=== PATIENT | male | born 1945 | race Caucasian/White ===

== ENCOUNTER 2019-04-14 23:49 | Emergency (ER) | payer OTHER ==
[~2019-04-14] VITALS: Ht 180.3 cm; Wt 93.0 kg
[2019-04-15 00:08] VITALS: BP_SYST 117
--- NOTE | 2019-04-15 00:28 | NUR ---
Pt brought in by . Pt states that he had a stent placed thursday and was started on plavix with the first dose being 0800hrs , . Pt states that shortly after taking plavix, he broke out in rash, localized to trucnk and lower extremeties. Pt denies chest pain, shortness of breath, nausea, vomiting or diarrhea. Pt denies any other medical complaint at this time. Pt denies pain at this time, claims his rash is causing "discomfort". Pt awake, alert, oriented x4. Pt vss, resting in ed Bed comfortably.
--- NOTE | 2019-04-15 00:28 | NUR ---
Pt placed to ER bed 02, to gown. Report given to MIS Jenkins.
--- NOTE | 2019-04-15 00:37 | NUR ---
ER at bedside examining patient.
--- NOTE | 2019-04-15 01:25 | NUR ---
Pt Awake, alert, oriented and resting in ED bed with bedside. No acute distress noted at this time.
[2019-04-15 01:40] LABS: MEAN CORPUSCULAR HGB CONC 35 % (32-36); WHITE BLOOD COUNT (AUTO) 10.9 K/uL (4.8-10.8)
[2019-04-15 01:44] LABS: BASOPHILS % (AUTO) 0.4 % (0.0-2.0); EOSINOPHILS # (AUTO) 0.3 K/uL (0.0-0.4); EOSINOPHILS % (AUTO) 2.5 % (0.0-4.0); HEMATOCRIT 43.9 % (36-54); HEMOGLOBIN 15.2 g/dL (14.0-18.0); LYMPHOCYTES # (AUTO) 1.4 K/uL (1.0-5.5); LYMPHOCYTES % (AUTO) 12.5 % (20.5-51.5); MEAN CORPUSCULAR HEMOGLOBIN 31 pg (27-31); MEAN CORPUSCULAR VOLUME 90 fL (79.0-98.0); MONOCYTES # (AUTO) 0.7 K/uL (0.0-1.0); MONOCYTES % (AUTO) 6.2 % (1.7-9.3); NEUTROPHILS # (AUTO) 8.5 K/uL (1.8-7.7); NEUTROPHILS % (AUTO) 78.4 % (40.0-70.0); PLATELET COUNT (AUTO) 221 K/uL (130-430); RED CELL DISTRIBUTION WIDTH 13.5 % (9.0-15.0)
[2019-04-15 01:49] LABS: ANION GAP 4 (5-15); CALCIUM 8.3 mg/dL (8.4-11.0); CHLORIDE 101 mmol/L (98-107); CREATININE 1.23 mg/dL (0.55-1.30); GLUCOSE 161 mg/dL (70-99); POTASSIUM 3.6 mmol/L (3.5-5.1); SODIUM SERUM 132 mmol/L (136-145); UREA NITROGEN, BLOOD 24 mg/dL (8-21)
[2019-04-15 01:55] LABS: ALANINE AMINOTRANSFERASE 17 U/L (12-78); ALBUMIN 3.3 g/dL (3.4-4.8); ASPARTATE AMINOTRANSFERASE 9 U/L (10-37); TOTAL BILIRUBIN 0.5 mg/dL (0.0-1.0)
[2019-04-15 03:00] VITALS: BP_SYST 112
--- NOTE | 2019-04-15 03:00 | NUR ---
Patient given written and verbal discharge instructions and verbalizes understanding. ER MD discussed with patient the results and treatment provided. Patient in stable condition. ID arm band removed. Rx of given. Patient educated on pain management and to follow up with PMD. Pain Scale 0/10. Opportunity for questions provided and answered.
== END 2019-04-15 03:00 | disposition home or self-care (01) ==
LOC: SED 23:49
DX: R21 Rash and other nonspecific skin eruption (principal)
CPT/HCPCS: 36415; 80053; 85025; 99283

== ENCOUNTER 2021-11-27 18:37 | Emergency (ER) | payer OTHER ==
[~2021-11-27] VITALS: Ht 177.8 cm; Wt 93.0 kg
[2021-11-27 18:48] VITALS: BP_SYST 152
[2021-11-27 19:32] LABS: BASOPHILS % (AUTO) 0.3 % (0.0-2.0); EOSINOPHILS % (AUTO) 0.6 % (0.0-4.0); HEMATOCRIT 43.5 % (36-54); HEMOGLOBIN 14.8 g/dL (14.0-18.0); LYMPHOCYTES # (AUTO) 1.1 K/uL (1.0-5.5); LYMPHOCYTES % (AUTO) 13.4 % (20.5-51.5); MEAN CORPUSCULAR HEMOGLOBIN 30 pg (27-31); MEAN CORPUSCULAR HGB CONC 34 % (32-36); MEAN CORPUSCULAR VOLUME 89 fL (79.0-98.0); MONOCYTES # (AUTO) 0.5 K/uL (0.0-1.0); MONOCYTES % (AUTO) 5.6 % (1.7-9.3); NEUTROPHILS # (AUTO) 6.5 K/uL (1.8-7.7); NEUTROPHILS % (AUTO) 80.1 % (40.0-70.0); PLATELET COUNT (AUTO) 169 K/uL (130-430); RED BLOOD CELL COUNT(AUTO) 4.89 MIL/uL (4.2-6.2); RED CELL DISTRIBUTION WIDTH 13.9 % (9.0-15.0); WHITE BLOOD COUNT (AUTO) 8.1 K/uL (4.8-10.8)
--- NOTE | 2021-11-27 19:37 | NUR ---
Pt to bed 3 w/ c/o vertigo and nausea/vomiting since last night. Pt denies chest pain. Normal skin color for ethnicity. Pt ambulates with strong steady gait. at bedside.
--- NOTE | 2021-11-27 19:38 | NUR ---
Pt placed on night monitor. pulse oximetry on. Bed in low position. Side rails up.
[2021-11-27 19:41] LABS: ANION GAP 9 (5-15); CALCIUM 8.4 mg/dL (8.4-11.0); CHLORIDE 105 mmol/L (98-107); GLUCOSE 127 mg/dL (70-99); POTASSIUM 4.3 mmol/L (3.5-5.1); SODIUM SERUM 139 mmol/L (136-145); UREA NITROGEN, BLOOD 20 mg/dL (8-21)
[2021-11-27 19:53] LABS: ALANINE AMINOTRANSFERASE 13 U/L (12-78); ALBUMIN 3.6 g/dL (3.4-4.8); ASPARTATE AMINOTRANSFERASE 10 U/L (10-37); TOTAL BILIRUBIN 0.8 mg/dL (0.0-1.0)
[2021-11-27] MEDS ORDERED: GLIP10TA11 PO (20:09)
[2021-11-27] MEDS ORDERED: INSU100V9 SQ (20:09)
[2021-11-27] MEDS ORDERED: ROSU20TA2 PO (20:09)
[2021-11-27] MEDS ORDERED: VITD2000 PO (20:09)
[2021-11-27] MEDS ORDERED: IRBE300T40 PO (20:09)
[2021-11-27] MEDS ORDERED: EMPA1TAB PO (20:09)
[2021-11-27] MEDS ORDERED: NOR10 PO (20:09)
[2021-11-27] MEDS ORDERED: ASPI-989 PO (20:09)
[2021-11-27] MEDS ORDERED: INSU100V SQ (20:09)
[2021-11-27] MEDS ORDERED: CARV3.1246 PO (20:09)
--- NOTE | 2021-11-27 20:19 | NUR ---
security monitor 5-lead adjusted on patient at this time due to poor rhythm reading on monitor.
[2021-11-27] MEDS ORDERED: MECL-225 PO (20:56)
[2021-11-27] MEDS ORDERED: METO-290 PO (20:56)
--- NOTE | 2021-11-27 21:25 | NUR ---
Patient given written and verbal discharge instructions and verbalizes understanding. ER MD discussed with patient the results and treatment provided. Patient in stable condition. ID arm band removed. Rx of MECLIZINE AND REGLAN given. Patient educated on pain management and to follow up with PMD. Pain Scale . Opportunity for questions provided and answered. Medication side effect fact sheet provided. Pt ambulated independently with strong, steady gait at this time.
== END 2021-11-27 21:32 | disposition home or self-care (01) ==
LOC: SED 18:37
DX: R42 Dizziness and giddiness (principal); R11.2 Nausea with vomiting, unspecified; E11.9 Type 2 diabetes mellitus without complications; Z86.79 Personal history of other diseases of the circulatory system; Z79.4 Long term (current) use of insulin; Z79.82 Long term (current) use of aspirin
CPT/HCPCS: 36415; 80053; 84484; 85025; 93005; 99284

== ENCOUNTER 2022-10-10 17:07 | Inpatient (IN) | payer OTHER ==
[~2022-10-10] VITALS: Ht 180.3 cm; Wt 88.9 kg
[~2022-10-10 17:07] MED LIST: ASPI-989 PO; CARV3.1246 PO; EMPA1TAB PO; GLIP10TA11 PO; INSU100V SQ; INSU100V9 SQ; IRBE300T40 PO; MECL-225 PO; METO-290 PO; NOR10 PO; ROSU20TA2 PO; VITD2000 PO
[2022-10-10 17:10] VITALS: BP_SYST 123
--- NOTE | 2022-10-10 17:17 | NUR ---
RECEIVED PT FROM MIS KHALIL. PT BIB WITH C/O C/P. EKG OBTAINED AND SHOWS AFIB RVR. PT IS AAOX4. RESP E/U. ON R/A. RE\ Addendum: 10/10/22 at 1747 by [email or web address] ABDOMEN SOFT, NONTENDER, NONDISTENDED. DENIES N/V/D/C. DISTAL PULSES STRONG, NO PERIPHERAL EDEMA NOTED. SKIN WARM, CDI. SIDERAILS UP X2.
--- NOTE | 2022-10-10 17:18 | NUR ---
DR. ELIAS AT BEDSIDE TO ASSESS PT.
--- NOTE | 2022-10-10 17:29 | NUR ---
Placed in room 03 . Placed on cardiac rehabilitation program director, blood pressure machine and pulse oximeter. To gown for exam. Side rails up.
--- NOTE | 2022-10-10 17:35 | NUR ---
PT BIB FROM HOME, C/O SUBSTERNAL NON-RADIATING CP STARTING AROUND 12PM TODAY, PT STATES HE HAS ALSO BEEN FEELING SOB. PER PT'S HR HAS BEEN IN THE 150S FOR 4 DAYS. PT HAS A HX OF CARDIAC STENT PLACEMENT AND TAKES ASA DAILY. PT IS AMBULATORY, AAOX4.
--- NOTE | 2022-10-10 17:35 | NUR ---
# 20 gauge angiocath placed to RAC. Use of asceptic technique. Opsite placed over site. Blood return noted. Blood for lab drawn from site. Flushed with 10 cc of normal saline. No evidence of infiltration noted. Patient tolerated well.
[2022-10-10] MEDS ORDERED: niCARdipine 2.5 MG/ML, 10 ML VIAL (CARDENE) IV ONE (17:37)
--- NOTE | 2022-10-10 17:40 | NUR ---
CARDIZEM 10MG IVP GIVEN AT THIS TIME. FOR AFIB HR IN THE 150-160S.
--- NOTE | 2022-10-10 17:42 | NUR ---
HR NOW IN THE 110S. PT DENIES C/P AT THIS TIME.
[2022-10-10] MEDS ORDERED: DILTIAZEM HCL 60 MG TABLET PO ONE (17:45)
[2022-10-10] MEDS ORDERED: dilTIAZem HCL IVP 5 MG/ML VIAL IVP ONE ×2 (17:45→18:00)
[2022-10-10 17:54] LABS: BASOPHILS # (AUTO) 0.1 K/uL (0.0-0.2); BASOPHILS % (AUTO) 0.9 % (0.0-2.0); EOSINOPHILS # (AUTO) 0.1 K/uL (0.0-0.4); EOSINOPHILS % (AUTO) 1.3 % (0.0-4.0); HEMATOCRIT 40.7 % (36-54); HEMOGLOBIN 13.6 g/dL (14.0-18.0); LYMPHOCYTES # (AUTO) 1.7 K/uL (1.0-5.5); LYMPHOCYTES % (AUTO) 17.5 % (20.5-51.5); MEAN CORPUSCULAR HEMOGLOBIN 30 pg (27-31); MEAN CORPUSCULAR HGB CONC 34 % (32-36); MEAN CORPUSCULAR VOLUME 90 fL (79.0-98.0); MONOCYTES # (AUTO) 0.8 K/uL (0.0-1.0); NEUTROPHILS # (AUTO) 7.2 K/uL (1.8-7.7); NEUTROPHILS % (AUTO) 72.3 % (40.0-70.0); PLATELET COUNT (AUTO) 254 K/uL (130-430); RED BLOOD CELL COUNT(AUTO) 4.51 MIL/uL (4.2-6.2); RED CELL DISTRIBUTION WIDTH 13.7 % (9.0-15.0)
--- NOTE | 2022-10-10 18:02 | NUR ---
CARDIZEM 60MG TAB PO GIVEN. CARDIZEM 10MG IVP SECOND DOSE HELD. PT HR MAINTAINING THE THE 110S.
[2022-10-10 18:08] LABS: ALANINE AMINOTRANSFERASE 22 U/L (12-78); ALBUMIN 3.3 g/dL (3.4-4.8); ANION GAP 9 (5-15); ASPARTATE AMINOTRANSFERASE 11 U/L (10-37); CALCIUM 8.3 mg/dL (8.4-11.0); CHLORIDE 105 mmol/L (98-107); CREATININE 1.13 mg/dL (0.55-1.30); GLUCOSE 153 mg/dL (70-99); PROTHROMBIN TIME 10.6 SECS (9.5-12.5); TOTAL BILIRUBIN 0.4 mg/dL (0.0-1.0); UREA NITROGEN, BLOOD 22 mg/dL (8-21)
--- NOTE | 2022-10-10 19:05 | NUR ---
DR. MEDEL AT BEDSIDE TO ASSESS PT.
[2022-10-10] MEDS ORDERED: ASPIRIN 81 MG TAB.CHEW PO ONE (19:15)
--- NOTE | 2022-10-10 19:19 | NUR ---
Admit bed requested Patient will be admitted to care of Dr. FLORIAN. Admitted to TELEMETRY unit. Diagnosis A-FLUTTER, CHEST PAIN Inpatient (Yes or No) YES Observation (Yes or No) NO Orientation concerns or request close to nursing station (Yes or No) NO Covid Status N/A On vent or bipap NO Isolation requirements NO Needs a sitter NO From Home (Yes or if No enter name of facility) YES Requires Dialysis (Yes or No) NO Med Rec Completed (Yes of No) PENDING
--- NOTE | 2022-10-10 19:20 | NUR ---
Note johnny in [facility] - 10/10/22 at [email or web address] MIREYA AT BEDSIDE ULTRASOUND IV ATTEMPT, SUCCESSFUL SAFETY RAILS UP CONNECTED TO VS MONITOR.
--- NOTE | 2022-10-10 19:26 | NUR ---
SECOND EKG OBTAINED. PT ENDORSED TO MIS SMITH. ALL QUESTIONS AND CONCERNS ADDRESSED.
--- NOTE | 2022-10-10 20:36 | NUR ---
Aminta turner in [facility] - 10/10/22 at 2038 by [email or web address] PT HAS 22 TO LEFT FOREARM
[2022-10-10] MEDS ORDERED: EMPA1TAB7 PO (21:09)
[2022-10-10] MEDS ORDERED: INSU100V9 SQ (21:09)
[2022-10-10] MEDS ORDERED: CARV6.2554 PO (21:09)
--- NOTE | 2022-10-10 21:20 | NUR ---
RECEIVED PT FROM ER VIA ARNAV VASQUEZ, EVEN AND UNLABIRED Addendum: 10/11/22 at 0114 by Richie Gonsalves, MIS ABEBE EVEN AND UNLABORED BREATHING, IN COMPANY OF SPOUSE, ROOM AIR, PT DENIED ANY SOB, CP OR ANY PAIN ATT, VSS, SKIN INTACT UPON ASSESSMENT, ABD SOFT WITH ACTIVE SOUND, PT AMBULATORY W/O ASSIST, STEADY GAIT, IV ACCESS TO LAC INTACT, CDI, BLE NOTED WITH +2 EDEMA, PT STATED HE IA ALLERGIC TO SHRIMP AND CONTRAST DYE, BLOOD SUGAR CHECKED AND WNL 120MG/DL, PT ADMITTED TO TLT UNIT UNDER THE CARTE OF DR. DE LA ROSA. PT ORIENTED TO ROOM, BATHROOM, USE OF CALL LIGHT, BED POSITIONING, SAFETY PREC, INSTRUCTED TO CALL THE NURSE FOR PRN MEDS IF NEED BE, PT VERBALIZED UNDERSTANDING, WILL CONTINUE WITH POC.
--- NOTE | 2022-10-10 21:40 | NUR ---
CALLED AND SPOKE WITH DR FLORIAN REGARDING SLIDING SCALE AND ACCUCHECK TO MONITOR PT BLOOD SUGAR AND TO BE AWARE THAT MED RECON HAS BEEN UPDATED, DR FLORIAN ORDERED REGULAR INSULIN SLIDING SCALE, ACHS ACCUCHECK AND STATED NO HYDRATION IV FLUID FOR PT. ORDER NOTED AND CARRIED OUT
[2022-10-10] MEDS ORDERED: DEXTROSE 50% JECT 50 ML DISP.SYRIN IVP ONE (22:15)
[2022-10-10] MEDS ORDERED: INSULIN REGULAR, HUMAN 100 UNITS/ML, 3 ML VIAL (humuLIN R) SUBCUT PRN (22:15)
--- NOTE | 2022-10-10 22:21 | NUR ---
Patient will be admitted to care of DR FLORIAN. Admitted to TELE unit. Will go to room 118B. Belongings MED/REC list completed. Complete and up to date summary report printed. SBAR report to JESSIE ABEBE be given at bedside with opportunity for questions.
[2022-10-10 22:32] VITALS: BP_SYST 118
[2022-10-10] MEDS ORDERED: ACETAMINOPHEN 325 MG TABLET PO PRN (22:45)
[2022-10-10] MEDS ORDERED: HYDROcodone/ACETAMIN 10-325 MG TAB PO PRN (22:45)
[2022-10-10] MEDS ORDERED: HYDROcodone/ACETAMIN 5-325 MG TAB (NORCO/ VICODIN) PO PRN (22:45)
[2022-10-10] MEDS ORDERED: LORazepam 2 MG/ML VIAL IVP PRN (22:45)
[2022-10-10] MEDS ORDERED: ONDANSETRON HCL 4 MG/2 ML VIAL IVP PRN (22:45)
[2022-10-10] MEDS ORDERED: NALOXONE HCL 0.4 MG/ML AMP (NARCAN) IVP PRN ×2 (22:45)
[2022-10-11 02:00] VITALS: BP_SYST 113
--- NOTE | 2022-10-11 04:46 | NUR ---
CONSULTATION PAGED/CALLED Reason for Consultation: A-Flutter Person Who was Notified: Orville Ingram via text Consulting Physician: Orville Ingram Ordering Physician: Tom Ingram
[2022-10-11] MEDS ORDERED: NORMAL SALINE 5 ML DISP.SYRIN IVF SCH (06:00)
[2022-10-11] MEDS: METOCLOPRAMIDE HCL 10 MG TABLET PO SCH ×3 (06:31→12:16)
--- NOTE | 2022-10-11 06:39 | NUR ---
PT IN BED, AOX4, EVEN AND UNLABORED BREATHING, DENIED ANY SOB, CP OR ANY PAIN ATT, VSS, PT AMBULATORY W/O ASSIST, STEADY GAIT, IV ACCESS TO LAC PATENT, CDI, NO CHANGES DURING SHIFT, BLOOD SUGAR CHECKED AND WNL 120 & 134MG/DL, CALL LIGHT WITHIN REACH, SAFETY PREC. MAINTAINED, VOIDING W/O DIFFICULTY, AMBULATORY TO RESTROOM W/O ASSIST, LOW BED POSITIONED, WILL ENDORSE TO AM SHIFT
[2022-10-11] MEDS ORDERED: INSULIN Lispro 100 UNITS/ML, 3 ML VIAL (humaLOG) SQ SCH (07:00)
[2022-10-11 08:05] LABS: BASOPHILS % (AUTO) 0.6 % (0.0-2.0); EOSINOPHILS # (AUTO) 0.1 K/uL (0.0-0.4); EOSINOPHILS % (AUTO) 1.7 % (0.0-4.0); HEMATOCRIT 38.6 % (36-54); HEMOGLOBIN 12.9 g/dL (14.0-18.0); LYMPHOCYTES # (AUTO) 1.2 K/uL (1.0-5.5); LYMPHOCYTES % (AUTO) 18.1 % (20.5-51.5); MEAN CORPUSCULAR HEMOGLOBIN 30 pg (27-31); MEAN CORPUSCULAR HGB CONC 34 % (32-36); MEAN CORPUSCULAR VOLUME 91 fL (79.0-98.0); MONOCYTES # (AUTO) 0.5 K/uL (0.0-1.0); MONOCYTES % (AUTO) 7.4 % (1.7-9.3); NEUTROPHILS # (AUTO) 4.7 K/uL (1.8-7.7); NEUTROPHILS % (AUTO) 72.2 % (40.0-70.0); PLATELET COUNT (AUTO) 234 K/uL (130-430); RED BLOOD CELL COUNT(AUTO) 4.26 MIL/uL (4.2-6.2); RED CELL DISTRIBUTION WIDTH 13.6 % (9.0-15.0); WHITE BLOOD COUNT (AUTO) 6.5 K/uL (4.8-10.8)
--- NOTE | 2022-10-11 08:15 | NUR ---
INITIAL ROUNDS Received pt AAOx4, no s/s resp distress, no c/o pain or discomfort. Pt c/o being hungry-noted no breakfast tray-called dietary right away for pt's Cardiac breakfast. Plan of care for the day reviewed with pt-pt verbalized his understanding. Pain management, disease process, skin and safety discussed-teach back done. Call light within reach.
[2022-10-11 08:39] LABS: ANION GAP 11 (5-15); CALCIUM 8.1 mg/dL (8.4-11.0); CHLORIDE 106 mmol/L (98-107); CHOLESTEROL 75 mg/dL (<200); CREATININE 1.04 mg/dL (0.55-1.30); GLUCOSE 142 mg/dL (70-99); HDL CHOLESTEROL 43 mg/dL (>45); PHOSPHORUS 3.3 mg/dL (2.7-4.5); THYROID STIMULATING HORMONE 1.96 uIu/mL (0.34-4.82); TRIGLYCERIDES 57 mg/dL (30-150); UREA NITROGEN, BLOOD 18 mg/dL (8-21)
[2022-10-11 08:47] VITALS: BP_SYST 123
[2022-10-11 08:52] VITALS: BP_SYST 123
[2022-10-11] MEDS ORDERED: CHOLECALCIFEROL (VITAMIN D3) 2,000 UNIT TABLET PO SCH (09:00)
[2022-10-11] MEDS ORDERED: [UNRECOGNIZED DRUG - OTHER] PO SCH (09:00)
[2022-10-11] MEDS ORDERED: MECLIZINE HCL 25 MG TABLET (ANITVERT) PO SCH (09:00)
[2022-10-11] MEDS ORDERED: ASPIRIN 81 MG TABLET(ECOTRIN) PO SCH (09:00)
[2022-10-11] MEDS ORDERED: EMPAGLIFLOZIN PO SCH (09:00)
[2022-10-11] MEDS ORDERED: METFORMIN HCL PO SCH (09:00)
[2022-10-11] MEDS ORDERED: CARVEDILOL 6.25 MG TABLET (COREG) PO SCH (09:00)
[2022-10-11] MEDS ORDERED: amLODIPine BESYLATE 10 MG TABLET PO SCH (09:00)
[2022-10-11] MEDS ORDERED: APIX5TAB PO (15:15)
[2022-10-11] MEDS ORDERED: CARV12.548 PO (15:15)
[2022-10-11 15:47] VITALS: BP_SYST 106
--- NOTE | 2022-10-11 16:15 | NUR ---
PATIENT DISCHARGED HOME Patient given medication reconciliation form and D/C instructions. Exit Care on Chest Pain, Atrial Fib, Atrial Flutter and Eliquis explained and provided. Patient and patient's both verbalized their understanding. MD discussed with patient the results and treatment provided. Ambulatory with steady gait for discharge to home. Patient in stable condition, ID band removed. IV catheter removed, intact and dressing applied, no active bleeding. Rx of Eliquis given. Patient educated on pain management. All belongings sent with patient. Patient left floor via wheelchair to private vehicle in no distress.
[2022-10-11] MEDS ORDERED: ATORVASTATIN 20 MG TABLET PO SCH (21:00)
[2022-10-11] MEDS ORDERED: LOSARTAN POTASSIUM 50 MG TABLET (COZAAR) PO SCH (21:00)
[2022-10-11] MEDS ORDERED: INSULIN GLARGINE 100 UNITS/ML, 10 ML VIAL SQ SCH (21:00)
== END 2022-10-11 16:15 | disposition home health service (06) | DRG 309 ==
LOC: SED 17:07 → STU 19:23
PROVIDERS: ADMIT Preventive Medicine Preventive Medicine/Occupational Environmental Medicine; ATTEND Preventive Medicine Preventive Medicine/Occupational Environmental Medicine
DX: I48.92 Unspecified atrial flutter (principal); E44.1 Mild protein-calorie malnutrition; I48.20 Chronic atrial fibrillation, unspecified; I10 Essential (primary) hypertension; I25.10 Atherosclerotic heart disease of native coronary artery without angina pectoris; C61 Malignant neoplasm of prostate; E11.9 Type 2 diabetes mellitus without complications; J44.9 Chronic obstructive pulmonary disease, unspecified; E55.9 Vitamin D deficiency, unspecified; E78.5 Hyperlipidemia, unspecified; I25.2 Old myocardial infarction; Z79.4 Long term (current) use of insulin; Z79.899 Other long term (current) drug therapy; Z79.82 Long term (current) use of aspirin; Z88.8 Allergy status to other drugs, medicaments and biological substances; Z79.01 Long term (current) use of anticoagulants; Z68.27 Body mass index [BMI] 27.0-27.9, adult
CPT/HCPCS: 36415; 71045; 80048; 80053; 80061; 83735; 84100; 84443; 84484; 85025; 85610-TC; 85730-TC; 93005; 93306; 99291; G0378; J3490; J8597

== ENCOUNTER 2023-03-21 15:08 | Emergency (ER) | payer OTHER ==
[~2023-03-21] VITALS: Ht 180.3 cm; Wt 88.0 kg
[~2023-03-21 15:08] MED LIST changes: +APIX5TAB PO; +CARV12.548 PO; -CARV3.1246 PO; +EMPA1TAB7 PO; -NOR10 PO
[2023-03-21 15:10] VITALS: BP_SYST 125; PULSE 55; RESP 17; TEMP 97.6; O2SAT 97
[2023-03-21 21:00] VITALS: BP_SYST 122; PULSE 55; RESP 17; TEMP 97.6; O2SAT 97
[2023-03-21] MEDS ORDERED: DICL20GE TP (21:00)
== END 2023-03-21 21:00 | disposition home or self-care (01) ==
LOC: SED 15:08
DX: S46.212A Strain of muscle, fascia and tendon of other parts of biceps, left arm, initial encounter (principal); E11.9 Type 2 diabetes mellitus without complications; I10 Essential (primary) hypertension; Z91.013 Allergy to seafood; Z79.4 Long term (current) use of insulin; Z79.899 Other long term (current) drug therapy; X58.XXXA Exposure to other specified factors, initial encounter; Y93.89 Activity, other specified; Y92.89 Other specified places as the place of occurrence of the external cause; Y99.8 Other external cause status
CPT/HCPCS: 73030; 73060-TC; 93971; 99284

== ENCOUNTER 2024-01-10 09:07 | Emergency (ER) | payer OTHER ==
[~2024-01-10] VITALS: Ht 180.3 cm; Wt 86.2 kg
[~2024-01-10 09:07] MED LIST changes: +DICL20GE TP
[2024-01-10 09:22] VITALS: BP_SYST 116; PULSE 60; RESP 16; TEMP 96.9; O2SAT 96
[2024-01-10] MEDS ORDERED: ACET1TAB93 PO (11:01)
[2024-01-10 11:26] VITALS: BP_SYST 127; PULSE 60; RESP 16; TEMP 98; O2SAT 96
== END 2024-01-10 11:28 | disposition home or self-care (01) ==
LOC: SED 09:07
DX: M54.16 Radiculopathy, lumbar region (principal); E11.9 Type 2 diabetes mellitus without complications; I10 Essential (primary) hypertension; Z91.013 Allergy to seafood; Z79.4 Long term (current) use of insulin
CPT/HCPCS: 72131; 99284